=== PATIENT | female | born 1975 ===

== ENCOUNTER 2021-09-25 19:50 | Emergency (ER) | payer SELFPAY ==
[~2021-09-25] VITALS: Ht 162.6 cm; Wt 70.5 kg
[2021-09-25 20:25] LABS: HCG SERUM QL NEGATIVE
[2021-09-25 20:46] VITALS: BP 126/82
== END 2021-09-25 20:49 ==
LOC: EDBD 19:52 → ER 19:52
DX: Z02.89 Encounter for other administrative examinations (principal)
CPT/HCPCS: 36415; 84703; 99283